=== PATIENT | male | born 1955 | race Caucasian/White ===

== ENCOUNTER 2017-02-19 16:36 | Emergency (ER) | payer MEDICARE ==
[~2017-02-19] VITALS: Ht 185.4 cm; Wt 108.9 kg
[2017-02-19] MEDS ORDERED: fentaNYL PF VIAL 100 MCG/2 ML VIAL IV PRN (16:45)
[2017-02-19] MEDS ORDERED: ONDANSETRON PF 4 MG/2 ML VIAL. IV ONE (17:15)
--- NOTE | 2017-02-19 17:30 | ED.ADGEN ---
Past Medical History Past Medical History: CAD, Depression, High Cholesterol, Hypertension, Other Additional Past Medical Histor: CHRONIC BILATERAL LEG PAIN, POOR HISTORIAN, CHRONIC BACK PAIN Past Surgical History: Other Additional Past Surgical Histo: FEMORAL BYPASS WITH INCISIONAL HERNIA, HERNIA SX Additional Information: 1/2 PACK/DAY Alcohol Use: None Drug Use: None Adult General Chief Complaint Chief Complaint: ABDOMINAL PAIN HPI HPI Patient is a 61 year old man, history of hypertension, hypercholesterolemia, CAD, hernia, who presents to the emergency department complaining of pain in the abdomen. Patient states he's had a hernia for many years, states that today he went to the bathroom, and it "popped out", states he had pain after he pushed it back in. Denies any nausea or vomiting, stated note noted some blood in his stool today. States one episode of bright red blood from his rectum, states he is experiencing pain in the left lower abdominal region at this time, states is consistent with previous hernia pain. Patient states that previously there was an attempt to fix the hernia but "they told me there was nothing to fix it to". He states this was 2 years ago when he was having another surgery he denies any recent travel or injuries, any nausea or vomiting, states he did pass stool today without issue. Review of Systems Review of Systems Constitutional: Denies fever or chills. [] Eyes: Denies change in visual acuity. [] HENT: Denies nasal congestion or sore throat. [] Respiratory: Denies cough or shortness of breath. [] Cardiovascular: Denies chest pain or edema. [] GI: Left-sided abdominal pain at hernia site, no nausea or vomiting, no diarrhea , complains of bright red blood per rectum times one episode today. : Denies dysuria. [] Musculoskeletal: Denies back pain or joint pain. [] Integument: Denies rash. [] Neurologic: Denies headache, focal weakness or sensory changes. [] Endocrine: Denies polyuria or polydipsia. [] Lymphatic: Denies swollen glands. [] Psychiatric: Denies depression or anxiety. [] Current Medications Current Medications Current Medications Medications (Trade) Dose Ordered Sig/Crystal Start Time Stop Time Status Last Admin Dose Admin Azithromycin (Zithromax) 500 mg 1X ONCE 02/19/17 20:30 02/19/17 20:31 DC Fentanyl Citrate (Fentanyl 2ml Vial) 25 mcg PRN Q15MIN PRN 02/19/17 16:45 02/19/17 21:36 DC Iohexol (Omnipaque 240 Mg/ml) 30 ml 1X ONCE 02/19/17 17:45 02/19/17 17:46 DC Iohexol (Omnipaque 300 Mg/ml) 75 ml 1X ONCE 02/19/17 17:45 02/19/17 17:46 DC 02/19/17 18:44 60 ML Ondansetron HCl (Zofran) 4 mg 1X ONCE 02/19/17 17:15 02/19/17 17:16 DC Allergies Allergies Allergies Coded Allergies Type Severity Reaction Last Updated Verified No Known Drug Allergies 01/04/15 No Physical Exam Physical Exam Constitutional: Well developed, well nourished, no acute distress, non-toxic appearance. [] HENT: Normocephalic, atraumatic, bilateral external ears normal, oropharynx moist, no oral exudates, nose normal. [] Eyes: PERRLA, EOMI, conjunctiva normal, no discharge. [] Neck: Normal range of motion, no tenderness, supple, no stridor. [] Cardiovascular:Heart rate regular rhythm, no murmur , S1, S2, rubs or gallops. [ ] Lungs & Thorax: Diminished breath of the bases bilaterally, no significant rhonchi or rales identified. Abdomen: Bowel sounds normal, soft, patient with a large left-sided abdominal hernia, that is easily reducible, patient complains of pain at this area, he has midline and multiple well-healed surgical incisions, no rebound or rigidity , mild tenderness noted, no masses, no pulsatile masses. [] Skin: Warm, dry, no erythema, no rash. [] Back: No tenderness, no CVA tenderness. [] Extremities: No tenderness, no cyanosis, no clubbing, ROM intact, no edema. Negative Homans sign. [] Neurologic: Alert and oriented X 3, normal motor function, normal sensory function, no focal deficits noted. [] Psychologic: Affect normal, judgement normal, mood normal. [] Current Patient Data Vital Signs Vital Signs Date Time Temp Pulse Resp B/P (MAP) Pulse Ox O2 Delivery O2 Flow Rate FiO2 02/19/17 21:00 69 20 133/84 (100) 96 Room Air 02/19/17 16:58 98.3 98.3 Lab Values Laboratory Tests Test 02/19/17 17:28 02/19/17 18:40 02/19/17 19:50 White Blood Count 7.7 x10^3/uL (4.0-11.0) Red Blood Count 4.73 x10^6/uL (4.30-5.70) Hemoglobin 12.9 g/dL (13.0-17.5) L Hematocrit 39.7 % (39.0-53.0) Mean Corpuscular Volume 84 fL (79-100) Mean Corpuscular Hemoglobin 27 pg (25-35) Mean Corpuscular Hemoglobin Concent 33 g/dL (31-37) Red Cell Distribution Width 16.0 % (11.5-14.5) H Platelet Count 263 x10^3/uL (140-400) Neutrophils (%) (Auto) 63 % (31-73) Lymphocytes (%) (Auto) 21 % (24-48) L Monocytes (%) (Auto) 11 % (0-9) H Eosinophils (%) (Auto) 5 % (0-3) H Basophils (%) (Auto) 1 % (0-3) Neutrophils # (Auto) 4.9 x10^3uL (1.8-7.7) Lymphocytes # (Auto) 1.6 x10^3/uL (1.0-4.8) Monocytes # (Auto) 0.8 x10^3/uL (0.0-1.1) Eosinophils # (Auto) 0.4 x10^3/uL (0.0-0.7) Basophils # (Auto) 0.1 x10^3/uL (0.0-0.2) Sodium Level 139 mmol/L (136-145) Potassium Level 4.2 mmol/L (3.5-5.1) Chloride Level 103 mmol/L (98-107) Carbon Dioxide Level 29 mmol/L (21-32) Anion Gap 7 (6-14) Blood Urea Nitrogen 16 mg/dL (8-26) Creatinine 1.4 mg/dL (0.7-1.3) H Estimated GFR (Cockcroft-Gault) 51.7 BUN/Creatinine Ratio 11 (6-20) Glucose Level 102 mg/dL (70-99) H Lactic Acid Level 1.3 mmol/L (0.4-2.0) Calcium Level 8.6 mg/dL (8.5-10.1) Total Bilirubin 0.3 mg/dL (0.2-1.0) Aspartate Amino Transferase (AST) 23 U/L (15-37) Alanine Aminotransferase (ALT) 30 U/L (16-63) Alkaline Phosphatase 105 U/L (46-116) Total Protein 8.1 g/dL (6.4-8.2) Albumin 3.3 g/dL (3.4-5.0) L Albumin/Globulin Ratio 0.7 (1.0-1.7) L Lipase 103 U/L (73-393) Urine Color Yellow Urine Clarity Clear Urine pH 6.5 Urine Specific [place] <=1.005 Urine Protein Negative mg/dL (NEG-TRACE) Urine Glucose (UA) Negative mg/dL (NEG) Urine Ketones (Stick) Negative mg/dL (NEG) Urine Blood Negative (NEG) Urine Nitrite Negative (NEG) Urine Bilirubin Negative (NEG) Urine Urobilinogen Dipstick 0.2 mg/dL (0.2 mg/dL) Urine Leukocyte Esterase Negative (NEG) Urine RBC 0 /HPF (0-2) Urine WBC 0 /HPF (0-4) Urine Squamous Epithelial Cells Occ /LPF Urine Bacteria 0 /HPF (0-FEW) Urine Opiates Screen Neg (NEG) Urine Methadone Screen Neg (NEG) Urine Barbiturates Neg (NEG) Urine Phencyclidine Screen Neg (NEG) Urine Amphetamine/Methamphetamine Pos (NEG) Urine Benzodiazepines Screen Pos (NEG) Urine Cocaine Screen Pos (NEG) Urine Cannabinoids Screen Neg (NEG) Urine Ethyl Alcohol Neg (NEG) Stool Occult Blood Negative (NEG) Laboratory Tests 02/19/17 17:28 Laboratory Tests 02/19/17 17:28 EKG EKG Not indicated. [] Radiology/Procedures Radiology/Procedures [][facility] [address] [place] [address] IMAGING REPORT Signed PATIENT: TREV LINDER ACCOUNT: [id number] : 1955 LOCATION: ER AGE: 61 SEX: M EXAM STATUS: REG ER ORD. PHYSICIAN: NORMA VARGAS DO REASON: abd pain/hernia/bloody stool PROCEDURE: CT ABD PELV W/ORAL&IV CONTRAST EXAM: CT ABDOMEN/PELVIS WITH CONTRAST. HISTORY: Abdominal pain, bloody stool, hernia. TECHNIQUE: Computed tomography of the abdomen and pelvis was performed after the intravenous administration of 60 mL Omnipaque 300. COMPARISON: None. FINDINGS: Lung windows through the visualized portions of the bases reveal a small infiltrate in the left lower lobe consistent with pneumonia. Coronary atherosclerotic calcifications are noted. Bone windows reveal no suspicious lesions. The gallbladder is surgically absent. The liver, spleen, adrenal glands, pancreas and kidneys are unremarkable. There are no pathologically enlarged lymph nodes. There are changes of open aortoiliac bypass bilaterally. There are stents within the [place] aorta and iliac systems, but they are occluded. A remnant of the femoral-femoral bypass also appears disconnected and occluded. The new grafts are patent. There are changes of mesh repair of a supraumbilical hernia in the midline. Along the inferior aspect of the repair, there is a recurrent large left para midline hernia containing multiple small bowel loops. One additional small bowel loop is contained within an additional small compartment of the hernia just to the right of midline as seen on image 52. There is no obstruction. IMPRESSION: 1. Mild left lower lobe pneumonia. 2. Recurrent large left paramidline hernia along the inferior aspect of a mesh repair. It contains multiple nonobstructed loops of small bowel. 3. Status post open aortoiliac bypass. The new grafts appear patent. *One or more of the following individualized dose reduction techniques were utilized for this examination: 1. Automated exposure control. 2. Adjustment of the mA and/or kV according to patient size. 3. Use of iterative reconstruction technique. Electronically signed by: Wiley Melo MD (02/19/2017 7:25 PM) [facility] DICTATED and SIGNED BY: VIOLA MELO MD DATE: 02/19/171917 CC: NORMA VARGAS DO; NO PCP ~ Course & Med Decision Making Course & Med Decision Making Pertinent Labs and Imaging studies reviewed. (See chart for details) Patient reducible hernia, CT obtained secondary to patient's complaints of severe pain, not reveal any evidence of strength relation, did note pneumonia, on reevaluation patient states that he is experiencing cough. Patient given first dose of azithromycin in the ED, given a prescription for additional 4 days , along with perception for albuterol. Patient received an abdominal binder in the ED, was given instructions to follow-up with general surgery for additional evaluation, states he is ready to be discharged home at this time, did tolerate oral medication without issue. We did discuss concerning symptoms that prompt return, importance of following up with general surgery for additional evaluation, patient voiced understanding and agreement. Patient discharged home in stable condition with plan as above. Dragon Disclaimer Dragon Disclaimer This electronic medical record was generated, in whole or in part, using a voice recognition dictation system. Departure Impression: Primary Impression: Hernia Additional Impression: Community acquired pneumonia Disposition: ADMITTED INPATIENT Condition: IMPROVED Scripts Albuterol Sulfate (PROVENTIL HFA INHALER) 6.7 Gm Hfa.aer.ad 1 PUFF IH PRN Q4HRS Y for FOR ASTHMA, #1 INHALER 0 Refills Prov: NORMA VARGAS DO 02/19/17 Azithromycin (AZITHROMYCIN TABLET) 250 Mg Tablet 250 MG PO DAILY for ANTI-BIOTIC, #4 TAB 0 Refills One tablet by mouth once daily for the next 4 days to treat pneumonia, start 02/20. First dose given in the emergency department on 02/19. Prov: NORMA VARGAS DO 02/19/17 Problem Qualifiers NORMA VARGAS DO Feb 19, 2017 17:30
[2017-02-19] MEDS ORDERED: IOHEXOL 240 MG/ML 50ML VIAL. PO ONE (17:45)
[2017-02-19] MEDS ORDERED: IOHEXOL 300 MG/ML 75 ML VIAL IV ONE (17:45)
[2017-02-19 18:06] LABS: BASO # 0.1 x10^3/uL (0.0-0.2); BASO % 1 % (0-3); EOS % 5 % (0-3); HEMATOCRIT 39.7 % (39.0-53.0); HEMOGLOBIN 12.9 g/dL (13.0-17.5); LYMPH # 1.6 x10^3/uL (1.0-4.8); LYMPH % 21 % (24-48); MEAN CORPUSCULAR HEMOGLOBIN 27 pg (25-35); MEAN CORPUSCULAR HGB CONC 33 g/dL (31-37); MEAN CORPUSCULAR VOLUME 84 fL (79-100); MONO % 11 % (0-9); NEUT % 63 % (31-73); PLATELET COUNT 263 x10^3/uL (140-400); RED BLOOD COUNT 4.73 x10^6/uL (4.30-5.70); WHITE BLOOD COUNT 7.7 x10^3/uL (4.0-11.0)
[2017-02-19 18:22] LABS: CALCIUM 8.6 mg/dL (8.5-10.1); CREATININE 1.4 mg/dL (0.7-1.3); GFR 51.7; POTASSIUM 4.2 mmol/L (3.5-5.1)
[2017-02-19 18:28] LABS: ALBUMIN 3.3 g/dL (3.4-5.0); ALBUMIN/GLOBULIN RATIO 0.7 (1.0-1.7); TOTAL BILIRUBIN 0.3 mg/dL (0.2-1.0); TOTAL PROTEIN 8.1 g/dL (6.4-8.2)
[2017-02-19 19:01] LABS: BILIRUBIN,URINE NEGATIVE (NEG); GLUCOSE,URINE NEGATIVE (NEG); NITRITE,URINE NEGATIVE (NEG); PH,URINE 6.5; PROTEIN,URINE NEGATIVE (NEG-TRACE); UROBILINOGEN,URINE 0.2 mg/dL (0.2 mg/dL)
[2017-02-19 19:07] LABS: BARBITURATES NEG (NEG); BENZODIAZEPINES POS (NEG); CANNABINOIDS NEG (NEG); COCAINE POS (NEG); METHADONE NEG (NEG); OPIATES NEG (NEG); PHENCYCLIDINE NEG (NEG)
[2017-02-19 19:21] LABS: BACTERIA,URINE 0 /HPF (0-FEW); RBC,URINE 0 /HPF (0-2); SQUAMOUS EPITHELIAL CELL,UR OCC /LPF; WBC,URINE 0 /HPF (0-4)
--- NOTE | 2017-02-19 19:28 | RAD ---
EXAM: CT ABDOMEN/PELVIS WITH CONTRAST. HISTORY: Abdominal pain, bloody stool, hernia. TECHNIQUE: Computed tomography of the abdomen and pelvis was performed after the intravenous administration of 60 mL Omnipaque 300. COMPARISON: None. FINDINGS: Lung windows through the visualized portions of the bases reveal a small infiltrate in the left lower lobe consistent with pneumonia. Coronary atherosclerotic calcifications are noted. Bone windows reveal no suspicious lesions. The gallbladder is surgically absent. The liver, spleen, adrenal glands, pancreas and kidneys are unremarkable. There are no pathologically enlarged lymph nodes. There are changes of open aortoiliac bypass bilaterally. There are stents within the [place] aorta and iliac systems, but they are occluded. A remnant of the femoral-femoral bypass also appears disconnected and occluded. The new grafts are patent. There are changes of mesh repair of a supraumbilical hernia in the midline. Along the inferior aspect of the repair, there is a recurrent large left para midline hernia containing multiple small bowel loops. One additional small bowel loop is contained within an additional small compartment of the hernia just to the right of midline as seen on image 52. There is no obstruction. IMPRESSION: 1. Mild left lower lobe pneumonia. 2. Recurrent large left paramidline hernia along the inferior aspect of a mesh repair. It contains multiple nonobstructed loops of small bowel. 3. Status post open aortoiliac bypass. The new grafts appear patent. *One or more of the following individualized dose reduction techniques were utilized for this examination: 1. Automated exposure control. 2. Adjustment of the mA and/or kV according to patient size. 3. Use of iterative reconstruction technique. Electronically signed by: Wiley Melo MD (02/19/2017 7:25 PM) [facility]
[2017-02-19 20:05] LABS: NEG OBC FOB NEG; POS OBC FOB POS
[2017-02-19] MEDS ORDERED: AZITHROMYCIN 250 MG TABLET. PO ONE (20:30)
[2017-02-19 21:00] VITALS: BP 133/84
[2017-02-19] MEDS ORDERED: PROVENTIL HFA6.7 GM IH (21:13)
[2017-02-19] MEDS ORDERED: AZIT250T6 PO (21:13)
--- NOTE | 2017-02-20 06:34 | EKG ---
[facility] [address] [place] [address] Test Date: 2017-02-19 Test Time: 16:54:19 Pat Name: TREV LINDER Department: Room: Gender: M [employer] Helper: : 1955 Requested By: NORMA VARGAS Order Number: [id number] Reading MD: Truman Butts Measurements Intervals [place] Rate: 69 P: 90 [place]: 188 QRS: 68 QRSD: 100 T: 60 QT: 428 QTc: 465 Interpretive Statements SINUS RHYTHM Electronically Signed On 02-21-2017 8:52:28 CDT by Truman Butts
== END 2017-02-19 21:20 | disposition home or self-care (01) ==
LOC: ER 16:36
DX: K46.9 Unspecified abdominal hernia without obstruction or gangrene (principal); J18.9 Pneumonia, unspecified organism; I25.10 Atherosclerotic heart disease of native coronary artery without angina pectoris; I10 Essential (primary) hypertension; E78.00 Pure hypercholesterolemia, unspecified; G89.29 Other chronic pain; F17.200 Nicotine dependence, unspecified, uncomplicated
CPT/HCPCS: 36415; 74177; 80053; 80307; 81001; 82274; 83605; 83690; 85027; 93005; 99285; Q9967; G0479

== ENCOUNTER 2017-08-23 03:45 | Emergency (ER) | payer MEDICARE | END 2017-08-23 05:04 | disposition home or self-care (01) | LOC: ER 03:45 | DX: J20.9 Acute bronchitis, unspecified (principal); I25.10 Atherosclerotic heart disease of native coronary artery without angina pectoris; E78.00 Pure hypercholesterolemia, unspecified; I10 Essential (primary) hypertension; G89.29 Other chronic pain | CPT/HCPCS: 99283 ==